=== PATIENT | male | born 1970 | race African-American/Black ===

== ENCOUNTER 2020-07-27 15:34 | Emergency (ER) | payer BC ==
[~2020-07-27] VITALS: Ht 152.4 cm; Wt 69.9 kg
== END 2020-07-27 18:36 | disposition home or self-care (01) ==
LOC: ER 15:34
DX: S92.332A Displaced fracture of third metatarsal bone, left foot, initial encounter for closed fracture (principal); W22.8XXA Striking against or struck by other objects, initial encounter; Y93.89 Activity, other specified; Y92.89 Other specified places as the place of occurrence of the external cause; Y99.8 Other external cause status